=== PATIENT | female | born 1995 | race Caucasian/White ===

== ENCOUNTER 2023-05-12 20:49 | Observation (INO) | payer BC, SELFPAY ==
[~2023-05-12] VITALS: Ht 170.2 cm; Wt 64.4 kg
[2023-05-12 22:18] LABS: BILIRUBIN,URINE NEGATIVE (NEGATIVE); BLOOD, URINE 1+ (NEGATIVE); CLARITY/URINE CLEAR (CLEAR); COLOR,URINE YELLOW (YELLOW); GLUCOSE,URINE NEGATIVE (NEGATIVE); KETONES,URINE NEGATIVE (NEGATIVE); LEUKOCYTE ESTERASE ,URINE NEGATIVE (NEGATIVE); NITRITE, URINE NEGATIVE (NEGATIVE); PROTEIN URINE NEGATIVE (NEGATIVE); UROBILINOGEN,URINE 0.2 (0.2-1.0)
[2023-05-12 22:34] LABS: BACTERIA,URINE FEW /HPF (None Seen); WBC,URINE NONE SEEN /HPF (0-3)
== END 2023-05-13 02:10 | disposition home or self-care (01) ==
LOC: SPU 20:49
PROVIDERS: ADMIT Obstetrics & Gynecology; ATTEND Obstetrics & Gynecology
DX: O46.93 Antepartum hemorrhage, unspecified, third trimester (principal); O62.9 Abnormality of forces of labor, unspecified; Z3A.28 28 weeks gestation of pregnancy
CPT/HCPCS: 81000; 85384; 86886; 86900; 86901; 36415; 76817; 76819; 76805; G0378 ×2; G0379

== ENCOUNTER 2023-06-14 19:06 | Emergency (ER) | payer BC ==
[~2023-06-14] VITALS: Ht 170.2 cm; Wt 65.8 kg
[2023-06-14 19:39] VITALS: BP_SYST 104; PULSE 124; RESP 18; TEMP 98.8; O2SAT 98
[2023-06-14] MEDS ORDERED: NIRM1TAB5 PO (22:33)
[2023-06-14 22:46] VITALS: TEMP 98.6
== END 2023-06-15 00:40 | disposition home or self-care (01) ==
LOC: SED 19:06
DX: O98.513 Other viral diseases complicating pregnancy, third trimester (principal); O00.01 Abdominal pregnancy with intrauterine pregnancy; Z3A.33 33 weeks gestation of pregnancy; Z79.899 Other long term (current) drug therapy
CPT/HCPCS: 36415; 99284